=== PATIENT | male | born 2000 | race Caucasian/White ===

== ENCOUNTER 2021-05-22 09:01 | Outpatient (CLI) | payer OTHER, SELFPAY ==
[2021-05-22 10:32] LABS: Amylase 54 U/L (25-115); LDH 226 U/L (87-241); Lipase 152 U/L (73-393)
[2021-05-23 14:11] LABS: Anti-Centromere B Ab <0.2 AI (0.0-0.9); Anti-Chromatin <0.2 AI (0.0-0.9); Anti-Jo <0.2 AI (0.0-0.9); Anti-Scleroderma-70 AB <0.2 AI (0.0-0.9); RNP Ab <0.2 AI (0.0-0.9); SJOGREN'S Anti-SS-A test < 0.2 AI (0.0-0.9); SJOGREN'S Anti-SS-B test < 0.2 AI (0.0-0.9); Smith Ab <0.2 AI (0.0-0.9)
[2021-05-23 14:42] LABS: Anti-dsDNA Ab <1 IU/mL (0-9)
[2021-05-25 21:07] LABS: Angiotensin Convert Enzyme 43 U/L (14-82); Cytoplasmic Ab (C-ANCA) <1:20 titer (Neg:<1:20); Endomysial Antibody IgA Negative (Negative); Immunoglobulin A 79 mg/dL (90-386); Immunoglobulin E 28 IU/mL (6-495); Immunoglobulin G 890 mg/dL (603-1613)
[2021-05-25 22:14] LABS: Immunoglobulin M 148 mg/dL (20-172)
[2021-05-25 22:15] LABS: Perinuclear Ab (P-ANCA) <1:20 titer (Neg:<1:20); t-Transglutaminase IgA <2 U/mL (0-3)
== END 2021-05-22 23:59 | disposition home or self-care (01) ==
PROVIDERS: PCP Physician Assistant; Referring Provider Internal Medicine Gastroenterology; Visit Provider Internal Medicine Gastroenterology
DX: R15.9 Full incontinence of feces (principal)
CPT/HCPCS: 36415; 82150; 82164; 82784; 82785; 83516; 83615; 83690; 86225; 86235; 86255; 86256

== ENCOUNTER 2021-07-02 09:39 | Outpatient (CLI) | payer OTHER, SELFPAY ==
[2021-07-03 17:40] LABS: Insulin Like Growth Factor 287 ng/mL (109-353)
[2021-07-04 05:07] LABS: H. PYLORI STOOL AG Negative (Negative)
[2021-07-04 08:28] LABS: Giardia Lamblia, Stool EIA Negative (Negative)
[2021-07-05 20:30] LABS: Calprotectin, Stool 17 ug/g (0-120); Fats, Neutral Normal (.); Fats, Total Normal (.)
== END 2021-07-02 23:59 | disposition home or self-care (01) ==
LOC: LAB 09:43
PROVIDERS: PCP Physician Assistant; Referring Provider Internal Medicine Gastroenterology; Visit Provider Internal Medicine Gastroenterology
DX: R15.9 Full incontinence of feces (principal)
CPT/HCPCS: 36415; 82533; 82705; 83993; 84305; 87329

== ENCOUNTER → 2021-08-03 | Outpatient (CLI) | payer OTHER, SELFPAY ==
[2021-08-12 02:06] LABS: Beef <0.10 kU/L (Class 0); Corn <0.10 kU/L (Class 0); Egg, Whole <0.10 kU/L (Class 0); Milk (Cow) <0.10 kU/L (Class 0); Peanut <0.10 kU/L (Class 0); Pork <0.10 kU/L (Class 0); Soybean <0.10 kU/L (Class 0); Wheat <0.10 kU/L (Class 0)
[2021-08-12 09:18] LABS: Chocolate <0.10 kU/L (Class 0)
== END | disposition home or self-care (01) ==
LOC: LAB 13:30
PROVIDERS: PCP Physician Assistant; Referring Provider Internal Medicine Gastroenterology; Visit Provider Internal Medicine Gastroenterology
DX: R11.0 Nausea (principal)
CPT/HCPCS: 36415; 86003; 86005

== ENCOUNTER → 2022-06-13 | Outpatient (CLI) | payer OTHER, SELFPAY ==
--- NOTE | 2022-06-13 17:00 | CT_ITS ---
STUDY: CT ABDOMEN AND PELVIS WITH CONTRAST REASON FOR EXAM: Male, 22 years old. Fecal incontinence, pain with bowel movements. RADIATION DOSAGE (If Supplied By Facility): CTDIvol = ( 15.64 ) mGy, DLP = ( 1216.43 ) mGycm TECHNIQUE: Transaxial images were obtained from the dome of the diaphragm to the symphysis pubis with oral contrast. Oral and amp; IV Readi-CAT and amp; 100mL Isovue-300 was administered. Sagittal and coronal images were reconstructed. Individualized dose optimization techniques were used for this CT. COMPARISON: None. FINDINGS: The visualized lung bases are unremarkable. The visualized portions of the heart are within normal limits. Normal liver. Normal gallbladder and extrahepatic biliary system. Normal spleen. Normal pancreas. Normal bilateral adrenal glands. Normal right kidney. Normal left kidney. There is a small hiatal hernia. Normal small intestine. Moderate amount of fecal material is seen in the colon. The appendix is visualized and appears normal. Normal abdominal aorta. Normal inferior vena cava. Normal retroperitoneum. Normal urinary bladder. Small bilateral benign-appearing inguinal lymph nodes. Normal abdominal wall. Normal osseous structures. CT/Abdomen/Pelvis WITH Contrast IMPRESSION: Moderate amount of fecal material is seen in the colon. Electronically Signed: Moses Avery MD at 12:17 EDT ,
[2022-06-13 17:32] LABS: Absolute Lymphocyte Count 2.45 X10^3/uL (0.83-4.51); Absolute Neutrophil Count 2.8 X10^3/uL (2.0-7.7); Basophil# 0.03 X10^3/uL; Basophil% 0.5 % (0-1); Eosinophil# 0.44 X10^3/uL; Hemoglobin 15.2 g/dL (13.0-16.5); Lymphocyte # 2.45 X10^3/ul (0.83-4.51); Mean Corp Hgb Conc 34.5 g/dL (32-36); Mean Corpuscular Hgb 31.6 pg (27.0-32.0); Mean Corpuscular Volume 91.5 fL (80-94); Mean Platelet Vol. 9.5 fl (6.2-12.0); Monocyte# 0.57 X10^3/uL; Monocyte% 9.1 % (0-10); NRBC Flagged by Analyzer 0 % (0-5); Neutrophil # 2.78 X10^3/uL (2.7-7.7); Neutrophil % 44.2 % (47-70); Platelet Count 207 K/mm3 (150-450); RBC Distribution Width CV 11.5 % (11.6-14.6); RBC Distribution Width SD 38.6 fl (35.1-43.9); Red Blood Count 4.81 M/mm3 (4.6-6.2); White Blood Count 6.3 K/mm3 (4.4-11.0)
[2022-06-13 18:36] LABS: ALB/GLOB Ratio 1.6 RATIO (0.9-2.4); AST(SGOT) 22 U/L (15-37); Alanine Aminotransfer ALT/SGPT 27 U/L (16-61); Albumin, Serum 4.3 g/dL (3.2-5.0); Alkaline Phosphatase 68 U/L (45-117); Anion Gap 3 (5-15); BUN 24 mg/dL (7-18); BUN/Creat Ratio 21.6 RATIO (10-20); CRP < 2.90 mg/L (0.0-3.0); Calcium,Total 8.9 mg/dL (8.5-10.1); Chloride 103 mmol/L (98-107); Creatinine, Serum 1.11 mg/dL (0.70-1.30); EST Glomerular Filtration Rate 87 mL/min (>60); Est Glom Filt Rate - Afr Amer 105 mL/min (>60); Globulin 2.7 g/dL (2.2-4.2); Glucose 99 mg/dL (74-106); Potassium 3.8 mmol/L (3.5-5.1); Sodium Level 136 mmol/L (136-145)
[2022-06-13 22:00] LABS: Erythrocyte Sedimentation Rate < 1 mm/hr (0-20)
[2022-06-17 14:08] LABS: Cytoplasmic Ab (C-ANCA) <1:20 titer (Neg:<1:20)
[2022-06-18 11:12] LABS: Perinuclear Ab (P-ANCA) <1:20 titer (Neg:<1:20)
== END | disposition home or self-care (01) ==
PROVIDERS: PCP Physician Assistant; Referring Provider Internal Medicine Gastroenterology; Visit Provider Internal Medicine Gastroenterology
DX: K62.89 Other specified diseases of anus and rectum (principal)
CPT/HCPCS: 36415; 74177; 80053; 85025; 85652; 86140; 86256; Q9967

== ENCOUNTER → 2022-07-11 | Outpatient (CLI) | payer OTHER, SELFPAY ==
[2022-07-18 00:06] LABS: Calprotectin, Stool <16 ug/g (0-120)
== END | disposition home or self-care (01) ==
LOC: LABSPEC 16:41
PROVIDERS: PCP Physician Assistant; Referring Provider Internal Medicine Gastroenterology; Visit Provider Internal Medicine Gastroenterology
DX: K62.89 Other specified diseases of anus and rectum (principal); K58.9 Irritable bowel syndrome, unspecified
CPT/HCPCS: 83630; 83993